=== PATIENT | female | born 1950 | race Two or more races ===

== ENCOUNTER → 2025-08-20 | Outpatient (CLI) | payer OTHER ==
--- NOTE | 2025-08-20 12:26 | DVH ---
CLINICAL INFORMATION: History of right knee arthroplasty. TECHNIQUE: Following the intravenous administration of 22.1 mCi technetium 99m- MDP, 3-phase bone scan was performed. Immediate flow images were obtained of both knees in the anterior and posterior projections. Blood pool images of both knees were obtained in the anterior, posterior, and both lateral projections. 3 hour delayed images were obtained in the anterior, posterior, and both lateral projections. COMPARISON: Radiographs dated 06/27/2025. FINDINGS: Mildly increased activity adjacent to the right knee prosthesis on the immediate flow images in the anterior projection, not definitely seen on the posterior projection images. There is increased activity on the blood pool phase, most prominent along the anterior aspect of the prosthesis, and appears to involve the patella. There is mildly increased uptake in the left knee on the delayed images, likely due to arthritic changes. IMPRESSION: 1. There is prominent activity adjacent to the right knee prosthesis on all 3 phases, including marked uptake in the expected location of the patella on the blood pool and delayed phases. Findings are nonspecific, however loosening and/or infection of the prosthesis can not be excluded in the appropriate clinical setting. 2. The prominent uptake in the patella may be seen with fracture in the appropriate clinical setting. Correlate with clinical findings. If there is clinical concern for patellar fracture, CT could be considered.
== END | disposition home or self-care (01) ==
LOC: XYW 07:54
PROVIDERS: ATTEND Nurse Practitioner
DX: Z96.641 Presence of right artificial hip joint (principal); Z96.651 Presence of right artificial knee joint
CPT/HCPCS: 78315; A9503